=== PATIENT | male | born 1965 | race Hispanic/Latino ===

== ENCOUNTER → 2018-07-12 | Outpatient (CLI) | payer OTHER ==
[~2018-07-12] MED LIST: GADODIAMIDE 5 MMOL/10 ML VIAL 5 MMOL/10 ML ML IV ONE
== END | disposition home or self-care (01) ==
LOC: RAH 13:29
PROVIDERS: ATTEND Psychiatry & Neurology Neurology
DX: Q28.2 Arteriovenous malformation of cerebral vessels (principal)
CPT/HCPCS: 70553; A9579